=== PATIENT | female | born 1985 | race Asian ===

== ENCOUNTER 2018-02-27 12:03 | Inpatient (IN) | payer MEDICAID, OTHER ==
[~2018-02-27] VITALS: Ht 152.4 cm; Wt 45.8 kg
[2018-02-27] MEDS ORDERED: PNV11TAB PO (12:27)
[2018-02-27] MEDS ORDERED: LACTATED RINGER'S 1,000 ML IV SCH (15:00)
--- NOTE | 2018-02-27 16:37 | TRIAGE ---
OB Triage Datetime Report Generated by CPN: 02/27/2018 16:37 Datetime: 02/27/2018 16:32 Labor Evaluation Frequency: 2-4 Monitor Mode: External Duration (sec)2399: 50-80 Quality: Moderate Pattern: Normal: <= 5 Contractions in 10 Minutes Resting Tone [place]: Relaxed Heart Rate FHR Baseline Rate: 135 Monitor Mode: External US FHR Baseline Changes: No Baseline Change Variability: Moderate 6-25 bpm Accelerations: 15X15 Decelerations: None Category: Category I Pain Assessment Pain Presence: None/Denies Datetime: 02/27/2018 14:11 Labor Evaluation Frequency: 2-4 Monitor Mode: External Duration (sec)2399: 50-80 Quality: Moderate Pattern: Normal: <= 5 Contractions in 10 Minutes Resting Tone [place]: Relaxed Heart Rate FHR Baseline Rate: 140 Monitor Mode: External US FHR Baseline Changes: No Baseline Change Variability: Moderate 6-25 bpm Accelerations: 15X15 Decelerations: None Category: Category I Pain Assessment Pain Presence: None/Denies Datetime: 02/27/2018 13:42 Labor Evaluation Frequency: 2-4 Monitor Mode: External Duration (sec)2399: 50-70 Quality: Moderate Pattern: Normal: <= 5 Contractions in 10 Minutes Resting Tone [place]: Relaxed Heart Rate FHR Baseline Rate: 145 Monitor Mode: External US FHR Baseline Changes: No Baseline Change Variability: Moderate 6-25 bpm Accelerations: 15X15 Decelerations: None Category: Category I Pain Assessment Pain Presence: None/Denies Datetime: 02/27/2018 12:28 Labor Evaluation Frequency: 0 Monitor Mode: External Heart Rate FHR Baseline Rate: 130 Monitor Mode: External US FHR Baseline Changes: No Baseline Change Variability: Moderate 6-25 bpm Accelerations: 15X15 Decelerations: None Category: Category I Pain Assessment Pain Presence: None/Denies Datetime: 02/27/2018 12:20 Stage of : OB Triage Assessment Type: Triage Time of Arrival: 02/27/2018 12:20 EGA: 32.4 Arrived By: Ambulatory Arrived From: Office Chief Complaint: CALF PAIN Movement: Present Contractions: Denies/Absent Rupture of Membranes: Denies Vaginal Bleeding: None Vaginal Discharge: Denies Recent Sexual Intercouse: Denies Abdominal Trauma: Not Applicable Patient Complaints: None; Contractions; Other Time Provider Notified: 02/27/2018 14:20 Provider Notified: DELCEFERINO Initial Plan: BPP, VENOUS DOPPLER BILT, IV HYDRATION, CERVICAL LENGHT, UA, FFN Maternal Assessment Level of Consciousness: Fully Conscious DTR's/Clonus: DTRs 2+; No Clonus Headache: Denies Blurred Vision: No Respiratory Effort: Unlabored; Regular Rhythm; Equal Expansion Breath Sounds, Left: Clear and Equal Breath Sounds, Right: Clear and Equal Nausea/Vomiting: Denies RUQ Epigastric Pain: Denies Facial Edema: None Temperature Route: Axillary Fall Risk Assessment History of Falling: (0) No Secondary Diagnosis: (0) No Ambulatory Aid: (0) Bedrest/Nurse Assist IV Therapy: (0) No Gait: (0) Normal/Bedrest/Immobile Mental Status: (0) Oriented to Own Ability Fall Score: 0 Fall Risk Score Definition: No Risk: No action required
[2018-02-27] MEDS ORDERED: MAGNESIUM SULFATE 4 GM/100 ML 100 ML ONE (16:46)
[2018-02-27] MEDS ORDERED: MAGNESIUM SULFATE 20 GM/500 ML 500 ML IV ONE (16:46)
[2018-02-27] MEDS ORDERED: MAGNESIUM SULFATE 4 GM/100 ML 100 ML IV ONE (17:00)
[2018-02-27] MEDS ORDERED: FER325 PO (17:18)
[2018-02-27] MEDS ORDERED: FOLI-49 PO (17:18)
[2018-02-27] MEDS: LACTATED RINGER'S 1,000 ML IV SCH ×2 (17:48→23:44)
[2018-02-27] MEDS: MAGNESIUM SULFATE 20 GM/500 ML 500 ML IV SCH (17:51)
[2018-02-27] MEDS: BETAMET NA PHOS/AC(6 MG/ML) 2 ML INJ SYG IM SCH (18:56)
[2018-02-28] MEDS: LACTATED RINGER'S 1,000 ML IV SCH ×2 (07:22→16:30)
[2018-02-28] MEDS: MAGNESIUM SULFATE 20 GM/500 ML 500 ML IV SCH (10:44)
[2018-02-28] MEDS: PRENATAL VITAMIN PO SCH (12:54)
[2018-02-28] MEDS: FERROUS SULFATE (EC) 325 MG TAB PO SCH (13:10)
[2018-02-28] MEDS: FOLIC ACID 1 MG TAB PO SCH (13:10)
--- NOTE | 2018-02-28 15:48 | CONS ---
Date/Time of Note Date/Time of Note DATE: 02/28/18 TIME: 15:44 Assessment/Plan Assessment/Plan Result Diagram: 02/27/18 1811 02/27/18 1811 Results 24hrs Laboratory Tests Test 02/27/18 18:07 02/27/18 18:11 02/28/18 00:24 02/28/18 05:20 Magnesium Level 4.8 H 7.1 *H 4.7 #H White Blood Count 8.0 Red Blood Count 3.76 L Hemoglobin 11.9 L Hematocrit 34.6 L Mean Corpuscular Volume 92.0 Mean Corpuscular 31.6 Hemoglobin Mean Corpuscular 34.4 Hemoglobin Concent Red Cell Distribution 13.7 Width Platelet Count 164 Mean Platelet Volume 10.7 H Immature Granulocytes % 0.500 H Neutrophils % 72.2 Lymphocytes % 21.1 Monocytes % 5.5 Eosinophils % 0.4 Basophils % 0.3 Nucleated Red Blood 0.0 Cells % Immature Granulocytes # 0.040 H Neutrophils # 5.8 Lymphocytes # 1.7 Monocytes # 0.4 Eosinophils # 0.0 Basophils # 0.0 Nucleated Red Blood 0.0 Cells # Sodium Level 134 L Potassium Level 3.8 Chloride Level 107 Carbon Dioxide Level 21 Anion Gap 6 Blood Urea Nitrogen 7 Creatinine 0.51 Est Glomerular Filtrat > 60 Rate mL/min Glucose Level 88 Calcium Level 9.0 Total Bilirubin 0.2 Direct Bilirubin 0.00 Indirect Bilirubin 0.2 Aspartate Amino 26 Transf (AST/SGOT) Alanine 23 Aminotransferase (ALT/SG PT) Alkaline Phosphatase 210 H Total Protein 6.2 Albumin 3.1 L Globulin 3.10 Albumin/Globulin Ratio 1.00 Test 02/28/18 12:16 Magnesium Level 5.5 *H Hepatitis B Surface NEGATIVE Antigen Hepatitis C Antibody NEGATIVE HIV (1&2) Antibody NEGATIVE Consultation Date/Type/Reason Admit Date/Time Feb 27, 2018 at 16:30 Date of Consultation: Feb 28, 2018 Type of Consult Neonatology Reason for Consultation labor and twin gestation at 32-5/7-week. Requesting Provider: RALF RALPH MD Hx of Present Illness Asked to consult of this family because of in threatening twin delivery at 32-5/7-week. Mother was admitted on 02/27/2018 for leg cramps, and found to have labor and twin gestation. DVT was excluded. She is a 32-year-old 1 otherwise healthy. She received the first dose of betamethasone at 02/27/18 at 1900 hrs. and was also started on magnesium sulfate. Cervical length is 2.2 cm She denies illnesses medication smoking drugs alcohol. Discussed with Mrs. Cole and her the risks related to prematurity as well as twin related to long-term neurodevelopmental problems as well as the more acute problem such as intracranial hemorrhage, respiratory problems including the need for support with oxygen positive pressure on mechanical ventilation, possibly needed procedures such as umbilical central and arterial catheterization, risk for infection, apnea hyperbilirubinemia feeding difficulties including necrotizing enterocolitis, hearing and vision problems and many other issues. They had many concerns about the length of stay of the mother herself as well as the babies and I took more than usual time to explain this on the request. They had no further questions at the end of the interview. More than 50% of the 40 minutes of this consult was spent on counseling and coordination of care. Thank you for allowing me to assist in the care of this family. Past Medical History Medications Current Medications Lactated Ringer's 1,000 ml @ 100 mls/hr Q10H IV Last administered on 02/28/18 07:22; Admin Dose 100 MLS/HR; Start 02/27/18 at 16:38 Magnesium Sulfate 500 ml @ 25 mls/hr Q20H IV Last administered on 02/28/18at 10:44; Admin Dose 25 MLS/HR; Start 02/27/18 at 17:00 Betamethasone Acet/Betameth SodPhos ([place]el[place] Soluspan) 12 mg Q24H IM Last administered on 02/27/18at 18:56; Admin Dose 12 MG; Start 02/27/18 at 18:00; Stop 02/28/18 at 18:01 Prenat Multivit/ [place]/Iron/Folic Ac () 1 tab DAILY PO Last ad ministered on 02/28/18 12:54; Admin Dose 1 TAB; Start 02/28/18 at 09:00 Folic Acid (Folic Acid) 1 mg DAILY PO Last administered on 02/28/18 13:10; Admin Dose 1 MG; Start 02/28/18 at 13:00 Ferrous Sulfate (Ferrous Sulfate (Ec)) 325 mg DAILY PO Last administered on 02/28/18 13:10; Admin Dose 325 MG; Start 02/28/18 at 13:00 Allergies: Coded Allergies: No Known Allergy (Unverified , 02/27/18) Social History Smoking Status: Never smoker Exam/Review of Systems Vital Signs Vitals Intake and Output 02/27/18 02/27/18 02/28/18 1414:59 22:59 06:59 IntakeIntake Total 1112.5 ml 1132 ml OutputOutput Total 1300 ml 1150 ml BalanceBalance -187.5 ml -18 ml Medications Medications Current Medications Lactated Ringer's 1,000 ml @ 100 mls/hr Q10H IV Last administered on 02/28/18at 07:22; Admin Dose 100 MLS/HR; Start 02/27/18 at 16:38 Magnesium Sulfate 500 ml @ 25 mls/hr Q20H IV Last administered on 02/28/18at 10:44; Admin Dose 25 MLS/HR; Start 02/27/18 at 17:00 Betamethasone Acet/Betameth SodPhos ([place] Soluspan) 12 mg Q24H IM Last administered on 02/27/18at 18:56; Admin Dose 12 MG; Start 02/27/18 at 18:00; Stop 02/28/18 at 18:01 Prenat Multivit/ [place]/Iron/Folic Ac () 1 tab DAILY PO Last administered on 02/28/18at 12:54; Admin Dose 1 TAB; Start 02/28/18 at 09:00 Folic Acid (Folic Acid) 1 mg DAILY PO Last administered on 02/28/18at 13:10; Admin Dose 1 MG; Start 02/28/18 at 13:00 Ferrous Sulfate (Ferrous Sulfate (Ec)) 325 mg DAILY PO Last administered on 02/28/18at 13:10; Admin Dose 325 MG; Start 02/28/18 at 13:00 TOYA EVANS Feb 28, 2018 15:48
[2018-02-28] MEDS: BETAMET NA PHOS/AC(6 MG/ML) 2 ML INJ SYG IM SCH (18:14)
--- NOTE | 2018-03-01 01:58 | CONS ---
DATE OF ADMISSION: 02/27/2018 DATE OF CONSULTATION: 02/28/2018 TYPE OF CONSULTATION: Perinatology. HISTORY OF PRESENT ILLNESS: The patient is a 32-year-old primigravida with a twin intrauterine gesta tion, boys, was brought to the hospital since she was having pain in her calf to rule out DVT. It wa s ruled out; however, on the monitor, she was found to have contractions. She denies feeling the con tractions. Cervical length was done, it was 2.2 cm. Decision was made for tocolysis and betamethaso ne. Currently, she is on 1 g of magnesium per hour, and she has some flushing. Otherwise, no other compl aints. She does have contractions occasionally. She does not feel them. heart tones reassuring. fibronectin was negative. She was given betamethasone yesterday ; the second dose is tonight. Her history overall is negative. Blood pressure is normal. Physical exam was deferred. heart tones reassuring. Tocometer shows contractions as above. ASSESSMENT: Twin intrauterine at 32 weeks and 5 days with labor on magnesium sulfa te, status post betamethasone x1, receiving second dose of betamethasone tonight. She does not feel contractions. Her cervix is slightly shorter than normal for the gestational age. The fFN was negat alvin. RECOMMENDATIONS: Continue with the betamethasone until tomorrow morning, then we can discontinue. R epeat the transvaginal cervical length. If it is at the same overall stable and patient does not fee l contractions and the frequency of the contractions is not high, we can consider discharging the pat ient home with testing twice weekly and labor precautions. I recommended pelvic re st and modified bed rest. Dictated By: JALEESA COOPER MD ST/NTS Conf#: [id number] DID#: [id number] CC: RALF RALPH MD;*EndCC*
[2018-03-01] MEDS: LACTATED RINGER'S 1,000 ML IV SCH ×3 (02:13→19:22)
[2018-03-01] MEDS: PRENATAL VITAMIN PO SCH (09:33)
[2018-03-01] MEDS: FERROUS SULFATE (EC) 325 MG TAB PO SCH (09:33)
[2018-03-01] MEDS: FOLIC ACID 1 MG TAB PO SCH (09:33)
--- NOTE | 2018-03-01 14:46 | QN ---
Documentation Comment not symptomatic CVL 2.0cm EFM irregular uc's no symptomatic ? late deceleration on Twin A A IUP 32w6d twin gestation S/P [id number] short cervix P extended ob for Twin A tracing today CRISTI STRATTON MD Mar 01, 2018 14:46
[2018-03-02] MEDS: LACTATED RINGER'S 1,000 ML IV SCH ×3 (03:29→20:09)
[2018-03-02] MEDS: PRENATAL VITAMIN PO SCH (09:05)
[2018-03-02] MEDS: FOLIC ACID 1 MG TAB PO SCH (09:05)
[2018-03-02] MEDS: FERROUS SULFATE (EC) 325 MG TAB PO SCH (09:05)
--- NOTE | 2018-03-02 12:52 | PN ---
Date/Time of Note Date/Time of Note DATE: 03/02/18 TIME: 12:46 OB Subjective Subjective Subjective 32-year-old 1 para 0 with di-di-twins at 33 weeks of gestation with es timated date of delivery April 20, 2018 Patient has been admitted for labor and cervical shortening with cervix of 2 cm Patient status post magnesium sulfate and status post betamethasone for lung maturity Patient was complaining of lower extremity/calf pain on admission Bilateral Doppler of lower extremities was negative for DVT Patient's history significant for fibroids and kidney stones OB Objective Objective Objective Patient does not report feeling any uterine contractions She reports a small vaginal spotting, denies any leaking fluid She reports positive movement Patient is complaining of chest pressure and shortness of breath Pulse ox is 93% on room air Pulse 66 PROCEDURE: Ultrasound of the bilateral lower extremity venous system. CLINICAL INDICATION: Bilateral leg pain and swelling, deep venous thrombosis TECHNIQUE: Tang scale with and without compression, color doppler, spectral doppler of the venous system of the bilateral lower extremities was performed. Venous augmentation maneuvers were utilized. COMPARISON: No prior studies are available for comparison. FINDINGS: Right: Common femoral vein: Patent. Femoral vein: Patent. Popliteal vein: Patent. Calf veins: Patent. No soft tissue abnormalities are identified. Left: Common femoral vein: Patent. Femoral vein: Patent. Popliteal vein: Patent. Calf veins: Patent. No soft tissue abnormalities are identified. IMPRESSION: No evidence of a deep vein thrombosis within the bilateral lower extremities. RPTAT: AADD .Zachery Fermin MD, Date Time Electronically viewed and signed by .Zachery Fermin MD, on 02/27/2018 13:00 .B/ CC: RALF RALPH MD [id number] PROCEDURE: US Obstetrical, limited CLINICAL INDICATION: Cervical length TECHNIQUE: Multiple real-time images were acquired of the patient's maternal abdomen utilizing a curved array transducer. COMPARISON: 02/27/2018 FINDINGS: There are live twin intrauterine gestations. Twin A, the presenting fetus is breech with a heart rate of 125 bpm, and the placenta implanted posteriorly, grade 1, while twin B is transverse with the head to the maternal right with a heart rate of 122 bpm with the placenta implanted anteriorly and is grade 1. There is no evidence of placenta previa or abruptio. The cervix is closed and measures 2.0 cm in length. IMPRESSION: 1. Live twin intrauterine gestations. 2. Twin A is breech, the heart rate is 125 bpm, and the placenta is grade 1 and implanted posteriorly without evidence of previa or abruptio. 3. Twin B is transverse with the head to the maternal right, the heart rate is 122 bpm, and the placenta is grade 1 an implanted anteriorly without evidence of previa or abruptio. 4. The cervix is closed and measures 2.0 cm in length, slightly shorter than measured previously. Physician Lisandro Date Time Electronically viewed and signed by Physician Lisandro on 03/01/2018 09:09 RH/ CC: RALF RALPH MD [phone] Urine Results - 72 Hrs Test 02/27/18 14:40 Urine Color YELLOW (YELLOW) Urine Clarity SLIGHTLY CLOUDY (CLEAR) Urine pH 6.0 (5.0-9.0) Urine Specific [place] 1.010 (1.003-1.030) Urine Ketones NEGATIVE mg/dL (NEGATIVE) Urine Nitrite NEGATIVE mg/dL (NEGATIVE) Urine Bilirubin NEGATIVE mg/dL (NEGATIVE) Urine Urobilinogen NEGATIVE mg/dL (NEGATIVE) Urine Leukocyte Esterase NEGATIVE Nora/ul Urine Microscopic RBC 2 /HPF (0-5) Urine Microscopic WBC 5 /HPF (0-5) Urine Squamous Epithelial Cells FEW /HPF (FEW) Urine Hemoglobin NEGATIVE mg/dL (NEGATIVE) Urine Glucose NEGATIVE mg/dL (NEGATIVE) Urine Total Protein NEGATIVE mg/dl (NEGATIVE) PROCEDURE: XR Chest. CLINICAL INDICATION: Chest pain TECHNIQUE: PA and Lateral views of the chest were obtained. COMPARISON: None. FINDINGS: The cardiomediastinal silhouette is within normal limits. The lungs are clear. There is a 2 mm nodular density seen in the central medial right upper lung field. This most likely represents a large osteophyte from the first costochondral junction, however, lung nodule cannot be ruled out. There is a small left pleural effusion. No pneumothorax seen. The osseous structures and soft tissues are unremarkable. IMPRESSION: Small left pleural effusion. Question right upper lobe lung nodule versus large first costal chondral junction osteophyte. Consider apical lordotic chest x-ray or CT for more definitive diagnosis. .Otf Hinojosa MD, MD Date Time Electronically viewed and signed by .Otf Hinojosa MD, MD on 03/02/2018 14:19 .A/ CC: DYLAN DE LA GARZA MD [id number] EKG normal sinus rhythm HEENT: WNL Heart: Rhythm Normal Lungs: Clear, Equal Abdomen: WNL Extremities: Normal Reflexes: Normal Membranes: Intact Heart Rate: 140's Accelerations: Accelerations Present Decelerations: No Decelerations Varibility: Moderate Contractions on Admission: 6-10 Minutes Apart Intensity: Mild OB Assessment/Plan Reason for admission: labor (Cervical shortening) Other plan: Continuous heart rate monitoring and biophysical profile twice weekly Twelve-lead EKG and chest x-ray done today If patient continues with chest pressure and shortness of breath we will consider a spiral CT to rule out PE DYLAN DE LA GARZA MD Mar 02, 2018 12:52
[2018-03-03] MEDS: LACTATED RINGER'S 1,000 ML IV SCH (05:45)
[2018-03-03] MEDS: FOLIC ACID 1 MG TAB PO SCH (08:13)
[2018-03-03] MEDS: PRENATAL VITAMIN PO SCH (08:13)
[2018-03-03] MEDS: FERROUS SULFATE (EC) 325 MG TAB PO SCH (08:13)
--- NOTE | 2018-03-03 11:10 | QN ---
Documentation Comment Twin @33+wks with PTL NST reassuring [place] occasional CTXs Pelvic deferred --->continue the same management AYDEE GOODWIN M.D. Mar 03, 2018 11:10
--- NOTE | 2018-03-03 21:23 | RADRPT ---
Vent Rate: 64 bpm RR Interval: 0 msec [place] Interval: 116 msec QRS Duration: 84 msec QT Interval: 368 msec QTC Interval: 379 msec P-R-T [place]: 59 - 66 - 42 degrees Normal sinus rhythm Normal ECG Electronically Signed By: Ariel Brooks [id number]
[2018-03-04] MEDS: PRENATAL VITAMIN PO SCH (08:52)
[2018-03-04] MEDS: FOLIC ACID 1 MG TAB PO SCH (08:52)
[2018-03-04] MEDS: FERROUS SULFATE (EC) 325 MG TAB PO SCH (08:52)
--- NOTE | 2018-03-04 09:25 | QN ---
Documentation Comment Twin @33+wks with PTL NST reassuring [place] occasional CTXs Pelvic deferred --->continue the same management AYDEE GOODWIN M.D. Mar 04, 2018 09:25
[2018-03-05] MEDS: PRENATAL VITAMIN PO SCH (08:40)
[2018-03-05] MEDS: FERROUS SULFATE (EC) 325 MG TAB PO SCH (08:41)
[2018-03-05] MEDS: FOLIC ACID 1 MG TAB PO SCH (08:41)
--- NOTE | 2018-03-05 18:43 | QN ---
Documentation Comment have eric with gilbert tomorrow for f/u no feeling of uc's even though efm shows some uterine activities 3-4 /hr A IUP 33w3d twin gestation short cervix P EFW and CVL in am CRISTI STRATTON MD Mar 05, 2018 18:43
[2018-03-06] MEDS: PRENATAL VITAMIN PO SCH (09:02)
[2018-03-06] MEDS: FOLIC ACID 1 MG TAB PO SCH (09:02)
[2018-03-06] MEDS: FERROUS SULFATE (EC) 325 MG TAB PO SCH (09:02)
--- NOTE | 2018-03-06 17:11 | QN ---
Documentation Comment no c/o cramping pain EFM occ uc not felt by patient CVL 2.3 stable TwinA 1678gm Twin B 1406gm A IUP 33w4d twin gestation short cervix stable S/P BMZ and Mg P continue current management till 34weeks CRISTI STRATTON MD Mar 06, 2018 17:11
[2018-03-07] MEDS: FOLIC ACID 1 MG TAB PO SCH (08:50)
[2018-03-07] MEDS: PRENATAL VITAMIN PO SCH (08:50)
[2018-03-07] MEDS: FERROUS SULFATE (EC) 325 MG TAB PO SCH (08:50)
--- NOTE | 2018-03-07 12:34 | PN ---
Date/Time of Note Date/Time of Note DATE: 03/07/18 TIME: 12:30 OB Subjective Subjective Subjective Denies any complaint. Comfortable in the bed. Denies any leaking of fluid, vaginal bleeding decreased movement or uterine contractions. Denies any pain in lower extremity OB Objective Objective Objective Appearance: Alert and oriented x4 does not appear to be in any acute distress Abdomen soft, gravid, fundal height appears to be less than dates for twin No tenderness, NST: Category 1 for both twins Contractions q. 49 minutes noted on the monitor and patient does not feeling Extremities: No calf tenderness, no click no edema no cord palpable Per ultrasound twin gestation malpresentation with transverse/vertex, Di/Di Both twins less than 3 percentile consistent with IUGR Maternal low BMI noted OB Assessment/Plan Other Assessment: Hospital day #9 Admitted for short cervix and twin gestation Status post magnesium and completed steroids IUGR in both twins Plan is to stay in the hospital until delivery Had episodes of chest pain and leg pain ruled out for DVT. Symptoms resolved Latest cervical length: 2.3 cm testing reassuring Continue inpatient management Continuous monitoring DVT prophylaxis with SCDs Maternal underweight and low BMI noted. IUGR likely secondary to maternal body habitus And possible poor nutritional status Recommended nutrition consultation while in-house Expectant management GEORGINA VALERIO MD Mar 07, 2018 12:34
--- NOTE | 2018-03-07 17:08 | NUR ---
NUTRITION CONSULT: PATIENT WITH HIGH CALORIE/PROTEIN NEEDS R/T TWIN GESTATION 32 5/7 WEEKS. PATIENT LACTO OVO VEGETARIAN. STATED HER MD ADVISED HER TO LIMIT HER MILK INTAKE R/T KIDNEY STONE (OXALIC). REVIEWED WITH PATIENT NUTRIENT DENSE FOOD WITH SHE CAN HAVE TO INCREASE CALORIE/PROTEIN INTAKE. PATIENT AWARE OF INCREASED NEEDS. FOOD PREFERENCE WERE OBTAINED AND WILL BE CATERED. ENCOURAGED TO HAVE SNACKS IN BETWEEN MEALS. WILL FOLLOW UP.
--- NOTE | 2018-03-08 02:07 | QN ---
Documentation Comment late entry for 03/07/18 no c/o of cramping pain EFM no uc's A IUP 33w5d twin gestations short cervix S/P BMZ and Mg P discharge home at 34weeks CRISTI STRATTON MD Mar 08, 2018 02:07
[2018-03-08] MEDS: PRENATAL VITAMIN PO SCH (08:44)
[2018-03-08] MEDS: FERROUS SULFATE (EC) 325 MG TAB PO SCH (08:45)
[2018-03-08] MEDS: FOLIC ACID 1 MG TAB PO SCH (08:45)
[2018-03-08] MEDS ORDERED: AL HYDROX/MG HYDROX/SIMETH 30 ML CUP PO ONE (11:00)
--- NOTE | 2018-03-08 17:49 | QN ---
Documentation Comment had epigastric pain gone with antiacid EFM 2-3uterine activities in hr not felt by patient (sera ) CAT I tracing A IUP 33w6d twin gestation short cervix herbert sosa discharge home tomorrow CRISTI STRATTON MD Mar 08, 2018 17:49
[2018-03-09] MEDS: PRENATAL VITAMIN PO SCH (09:37)
[2018-03-09] MEDS: FERROUS SULFATE (EC) 325 MG TAB PO SCH (09:37)
[2018-03-09] MEDS: FOLIC ACID 1 MG TAB PO SCH (09:37)
--- NOTE | 2018-03-09 16:12 | PN ---
Date/Time of Note Date/Time of Note DATE: 03/09/18 TIME: 16:07 OB Subjective Subjective Subjective Patient comfortable. Denies any leaking of fluid, vaginal bleeding decreased movement denies any urinary symptoms. Reported by nurse presents of lung nodules noted in chest x-ray versus hypertrophic, cartilage with some small pleural effusion. Patient denies any fever or chills. Denies any night sweats. Denies any prior history of cough. Denies any history of respiratory problem in the past. OB Objective Objective Objective General appearance: Alert and oriented x4 does not appear to be in any acute distress Abdomen: Soft, gravid fundal height appears to correlate with gestational age, NST: Category 1 and appropriate for gestational age Occasional contractions noted in the bouts of 4 every minute and resolves. Patient does not feel them. Extremities: No calf tenderness, no click no edema Discussed with the patient will have SCDs on when she is in bed OB Assessment/Plan Other Assessment: Admitted for leg pain, negative DVT and clinical exam and ultrasound Noted to have regular contractions, Admitted due to contractions. Twin gestation, Di/Di Status post steroids, completed Cervical length 2.3 cm Low BMI, IUGR noted in growth examination likely related to maternal low BMI Status post podiatry consultation Incidental finding of lung nodule with small pleural effusion. Patient denies any symptoms Recommended about hospice consultation while in-house for incidental finding of lung nodule Expectant management, continuous monitoring and toco with NST every shift GEORGINA VALERIO MD Mar 09, 2018 16:12
[2018-03-10] MEDS: FERROUS SULFATE (EC) 325 MG TAB PO SCH (08:28)
[2018-03-10] MEDS: FOLIC ACID 1 MG TAB PO SCH (08:28)
[2018-03-10] MEDS: PRENATAL VITAMIN PO SCH (08:28)
--- NOTE | 2018-03-10 11:35 | CONS ---
Date/Time of Note Date/Time of Note DATE: 03/10/18 TIME: 11:31 Assessment/Plan Assessment/Plan Assessment/Plan Chest x-ray was reviewed which is showing slight interstitial prominence with very minimal if any left pleural effusion. It appears to be a calcified mass in the right upper lobe area. Assessment recommendations; 1. Patient admitted with abdominal cramping likely due to labor which has been reported. Patient clinically stable. 2. Chest x-ray findings are consistent with likely prior granulomatous disease. The patient from a clinical perspective is totally is not traumatic. Continue current supportive care. Patient will need to have a CT imaging of the chest after delivery. There is no other workup warranted at this time. Consultation Date/Type/Reason Admit Date/Time Feb 27, 2018 at 16:30 Date of Consultation: Mar 10, 2018 Type of Consult Pulmonary Pulmonary consult requested for evaluation of possible lung nodule as well as left pleural effusion. History of presenting illness; patient is a 32-year-old lady who came into the hospital with complaints of abdominal cramps. The patient has twin . Delivery has been deferred. Patient has remained stable clinically. Routine chest x-ray was done which has been interpreted as showing a possible right upper lobe nodule as well as a small left pleural effusion. From a pulmonary pe rspective patient is completely asymptomatic other than occasional orthopnea. Denies any coughing, wheezing, sputum production, fever or chills. Past medical history; unremarkable. Medications; reviewed. Allergies; none. Family history; patient is , has a supportive family. Occupational history; patient is a housewife. Review of systems; denies any headache, sinus symptoms. Any chest pain. Complains of occasional orthopnea. Denies any coughing, sputum production, fever, weight loss. Denies any nausea vomiting. Complains of occasional abdominal discomfort. Denies any edema. There is no recent travel history. Patient has been residing in the [place] for the last 10 years. General exam; young female, awake alert, currently no distress. Past Medical History Medications Current Medications Prenat Multivit/ Manager Of Tires Sales/Iron/Folic Ac () 1 tab DAILY PO Last administered on 03/10/18at 08:28; Admin Dose 1 TAB; Start 02/28/18 at 09:00 Folic Acid (Folic Acid) 1 mg DAILY PO Last administered on 03/10/18at 08:28; Admin Dose 1 MG; Start 1/3/19 at 13:00 Ferrous Sulfate (Ferrous Sulfate (Ec)) 325 mg DAILY PO Last administered on 03/10/18 08:28; Admin Dose 325 MG; Start 02/28/18 at 13:00 Allergies: Coded Allergies: No Known Allergy (Unverified , 02/27/18) Social History Smoking Status: Never smoker Exam/Review of Systems Exam H HEENT exam; supple neck, no JVD. No lymphadenopathy. Midline trachea. No thyromegaly. Patient has good dentition. No neck masses. Chest exam; clear to auscultation. S1-S2 audible, no murmurs. Regular rhythm. Abdomen exam; gravid. Bowel sounds audible Extremity exam; no peripheral edema. TOWER LOADER OPERATOR exam; no focal deficit. Medications Medications Current Medications Prenat Multivit/ Manager Of Tires Sales/Iron/Folic Ac () 1 tab DAILY PO Last administered on 03/10/18 08:28; Admin Dose 1 TAB; Start 02/28/18 at 09:00 Folic Acid (Folic Acid) 1 mg DAILY PO Last administered on 03/10/18 08:28; Admin Dose 1 MG; Start 02/28/18 at 13:00 Ferrous Sulfate (Ferrous Sulfate (Ec)) 325 mg DAILY PO Last administered on 03/10/18 08:28; Admin Dose 325 MG; Start 02/28/18 at 13:00 LLUVIA FARRAR Mar 10, 2018 11:35
--- NOTE | 2018-03-10 17:29 | QN ---
Documentation Comment Twin @34+wks with PTL NST reassuring [place] occasional CTXs Pelvic deferred --->continue the same management AYDEE GOODWIN M.D. Mar 10, 2018 17:29
[2018-03-11] MEDS: FERROUS SULFATE (EC) 325 MG TAB PO SCH (08:31)
[2018-03-11] MEDS: PRENATAL VITAMIN PO SCH (08:31)
[2018-03-11] MEDS: FOLIC ACID 1 MG TAB PO SCH (08:31)
--- NOTE | 2018-03-11 13:05 | QN ---
Documentation Comment Twin @34+wks with PTL NST reassuring [place] occasional CTXs Pelvic deferred --->continue the same management AYDEE GOODWIN M.D. Mar 11, 2018 13:05
[2018-03-12] MEDS: FERROUS SULFATE (EC) 325 MG TAB PO SCH (08:42)
[2018-03-12] MEDS: FOLIC ACID 1 MG TAB PO SCH (08:42)
[2018-03-12] MEDS: PRENATAL VITAMIN PO SCH (08:42)
--- NOTE | 2018-03-12 12:16 | QN ---
Documentation Comment No complaint Afebrile VSS Strip Reactive Continue present care Perinatology follow up. RALF RALPH MD Mar 12, 2018 12:15
--- NOTE | 2018-03-12 13:46 | PN ---
Date/Time of Note Date/Time of Note DATE: 03/12/18 TIME: 13:41 OB Subjective Subjective Subjective Patient with twin IUP, labor (resolved) found today to have symmetric growth restriction. I would follow this with twice weekly testing (NST or BPP) and umbilical artery Doppler weekly. I would repeat the growth evaluation in two weeks. If there is non-reassuring testing for either fetus I would deliver. Otherwise, I would deliver at 36 weeks for twin IUGR. (per ACOG Committee opinion on medically-indicated late p reterm and early term deliveries. Copies To: CC: RALF RALPH MD ; KATHI DEY MD Mar 12, 2018 13:46
[2018-03-13] MEDS: FERROUS SULFATE (EC) 325 MG TAB PO SCH (09:02)
[2018-03-13] MEDS: FOLIC ACID 1 MG TAB PO SCH (09:02)
[2018-03-13] MEDS: PRENATAL VITAMIN PO SCH (09:02)
--- NOTE | 2018-03-13 16:18 | PN ---
Date/Time of Note Date/Time of Note DATE: 03/13/18 TIME: 16:16 OB Subjective Subjective Subjective Patient seen and examined. She states good movement. She denies nausea, vomiting, shortness of breath, chest pain, abdominal pain, headache, visual changes, vaginal bleeding or LOF. OB Objective Objective Objective General: Patient appears well, alert and oriented, NAD, appropriate mood and affect ABD: gravid, soft, non-tender. Back: No CVA tenderness (B/L) LE: Mild edema. No clubbing, cyanosis, edema, thigh or calf tenderness bilaterally FHT: 135 bpm , moderate variability with acceleration, no deceleration-category I Contractions: Irregular, patient does not feel dos OB Assessment/Plan Other plan: 32 Year-old G1 with SIUP at 34 weeks and 4-days with fractions - FHR: Reassuring. No sign of metabolic acidosis- Category I - Contractions: Irregular, patient is comfortable with those - Continuous EFM, toco. - She has received magnesium sulfate and betamethasone, currently steroid benefited - Continue current management and follow-up with her primary OB LISA CHRISTIANSON Mar 13, 2018 16:18
[2018-03-14] MEDS: PRENATAL VITAMIN PO SCH (09:03)
[2018-03-14] MEDS: FERROUS SULFATE (EC) 325 MG TAB PO SCH (09:03)
[2018-03-14] MEDS: FOLIC ACID 1 MG TAB PO SCH (09:03)
--- NOTE | 2018-03-14 19:33 | QN ---
Documentation Comment No complaint Afebrile VSS Strip Reactive both twins Continue with +in hospital care. RALF RALPH MD Mar 14, 2018 19:33
[2018-03-15] MEDS: PRENATAL VITAMIN PO SCH (09:32)
[2018-03-15] MEDS: FOLIC ACID 1 MG TAB PO SCH (09:33)
[2018-03-15] MEDS: FERROUS SULFATE (EC) 325 MG TAB PO SCH (09:33)
--- NOTE | 2018-03-15 12:25 | NUR ---
SW NOTE: ASSESSMENT Met with both the pt and the FoB/ - Khari Quintana, : 12/21/1979 , at bedside for supportive intervention. Both were receptive. Communicated in Iranian. Pt and FoB have been x7 years. They are originally from [place] and [place] the [place]. They both reside at the address son the face sheet. Pt is G-1 and P-0. She is carrying twins. MoB stated she started PNC with Dr. Christie at [facility] but when her insurance changed, she switched to Dr. Dean. Both are coping well. They have a good understanding of the PoC. Denied any P/S issues. SW provided supportive intervention. Encouraged the pt/FoB to verbalize their feelings/concerns. Will remain available. Addendum: 03/15/18 at 1603 by RUFUS LIN LCSW Amended: Links added.
--- NOTE | 2018-03-15 19:23 | QN ---
Documentation Comment No complaint Afebrile VSS Strip Reactive both twins BPP 10/03 Continue with in hospital care. RALF RALPH MD Mar 15, 2018 19:23
[2018-03-16] MEDS: PRENATAL VITAMIN PO SCH (08:45)
[2018-03-16] MEDS: FERROUS SULFATE (EC) 325 MG TAB PO SCH (08:46)
[2018-03-16] MEDS: FOLIC ACID 1 MG TAB PO SCH (08:46)
--- NOTE | 2018-03-16 11:56 | QN ---
Documentation Comment No complaint Afebrile VSS Strip Reactive both twins Continue with in hospital care. RALF RALPH MD Mar 16, 2018 11:56
[2018-03-17] MEDS: PRENATAL VITAMIN PO SCH (08:27)
[2018-03-17] MEDS: FOLIC ACID 1 MG TAB PO SCH (08:27)
[2018-03-17] MEDS: FERROUS SULFATE (EC) 325 MG TAB PO SCH (08:27)
--- NOTE | 2018-03-17 13:46 | QN ---
Documentation Comment No complaint Afebrile VSS Strip Reactive both twins Continue with in hospital care. RALF RALPH MD Mar 17, 2018 13:46
[2018-03-18] VITALS (7 sets, daily range): BP systolic 109–130; BP diastolic 72–78; PULSE 70–82; RESP 16–20
[2018-03-18] MEDS: LACTATED RINGER'S 1,000 ML IV SCH ×3 (03:40→17:19)
[2018-03-18] MEDS ORDERED: METHYLERGONOVINE 0.2 MG INJ IM PRN ×2 (04:00→10:00)
[2018-03-18] MEDS ORDERED: OXYTOCIN 30 UNITS/LR 500 ML IV SCH ×2 (04:00)
[2018-03-18] MEDS ORDERED: LIDOCAINE 1% (MPF) 30 ML INJ INJ PRN (04:00)
[2018-03-18] MEDS ORDERED: MISOPROSTOL 200 MCG TAB PR PRN ×2 (04:00→10:00)
[2018-03-18] MEDS ORDERED: OXYTOCIN 30 UNITS/LR 500 ML IV PRN ×2 (04:00→10:00)
[2018-03-18] MEDS ORDERED: CARBOPROST 250 MCG INJ IM PRN ×2 (04:00→10:00)
[2018-03-18] MEDS: ONDANSETRON 4 MG INJ IV PRN ×2 (04:11→10:38)
[2018-03-18] MEDS ORDERED: CEFAZOLIN 2 GM/50 ML (PMX) 50 ML IVPB ONE (04:30)
[2018-03-18] MEDS ORDERED: morphine SULFATE/PF (10 MG/10 ML) INJ ONE (05:19)
[2018-03-18] MEDS ORDERED: BUPIVACAINE 0.75%/DEXT (SPINAL) 2 ML INJ ONE (05:19)
[2018-03-18] MEDS ORDERED: EPHEDrine 25 MG/5 ML SYG ONE (05:29)
[2018-03-18] MEDS ORDERED: ONDANSETRON 4 MG INJ ONE (05:29)
[2018-03-18] MEDS ORDERED: METOCLOPRAMIDE 10 MG INJ ONE (05:29)
--- NOTE | 2018-03-18 05:39 | PREAC ---
Date/Time of Note Date/Time of Note DATE: 03/18/18 TIME: 05:36 Anesthesia Eval and Record Evaluation Time Pre-Procedure Interview DATE: 03/18/18 TIME: 04:37 Age 32 Sex female NPO: 8 hrs Preoperative diagnosis iup @ 35 wks., twins, breech presentation, labor Planned procedure primary c/s Past Medical History Past Medical History: Includes : : (1), Para: (0), Gestational age: (35 wks.), Twin , Other (breech presentation, vaginal dilatation) Surgery & Anesthesia Issues No known issue Meds Anticoagulation: No Beta Dandre within 24 hr: No Reason Beta Dandre not given: Pt. not on B-Dandre Reported Medications Ferrous Sulfate* (Ferrous Sulfate*) 325 Mg Tabec, 325 MG PO DAILY, TAB 02/27/18 Folic Acid* (Folic Acid*) 1 Mg Tablet, 1 MG PO DAILY, TAB 02/27/18 [id number] ( 19) 1 Each Tablet, 1 TAB PO DAILY, TAB 02/27/18 Current Medications Prenat Multivit/ Registered Health Nurse/Iron/Folic Ac () 1 tab DAILY PO Last administered on 03/17/18at 08:27; Admin Dose 1 TAB; Start 02/28/18 at 09:00 Folic Acid (Folic Acid) 1 mg DAILY PO Last administered on 03/17/18at 08:27; Admin Dose 1 MG; Start 02/28/18 at 13:00 Ferrous Sulfate (Ferrous Sulfate (Ec)) 325 mg DAILY PO Last administered on 03/17/18at 08:27; Admin Dose 325 MG; Start 02/28/18 at 13:00 Lactated Ringer's 1,000 ml @ 125 mls/hr Q8H IV Last administered on 03/18/18at 03:40; Admin Dose 125 MLS/HR; Start 03/18/18 at 03:30 Ondansetron HCl (Zofran Inj) 4 mg Q4H PRN IV NAUSEA AND/OR VOMITING Last administered on 03/18/18at 04:11; Admin Dose 4 MG; Start 03/18/18 at 03:30 Lidocaine (Xylocaine 1% (Mpf)) 30 ml ONCE PRN INJ EPISIOTOMY; Start 03/18/18 at 04:00 Oxytocin/Lactated Ringer's 500 ml @ 500 mls/hr ONCE POST IV ; Start 03/18/18 at 04:00 Oxytocin/Lactated Ringer's 500 ml @ 125 mls/hr POST IV ; Start 03/18/18 at 04:00 Oxytocin/Lactated Ringer's 500 ml @ 0 mls/hr ONCE PRN IV VAGINAL BLEEDING; Start 03/18/18 at 04:00 Methylergonovine Maleate (Methergine) 0.2 mg ONCE PRN IM VAGINAL BLEEDING; Start 03/18/18 at 04:00 Carboprost Tromethamine (Hemabate) 250 mcg ONCE PRN IM VAGINAL BLEEDING; Start 03/18/18 at 04:00 Misoprostol (Cytotec) 1,000 mcg ONCE PRN OR VAGINAL BLEEDING; Start 03/18/18 at 04:00 Meds reviewed: Yes Allergies Coded Allergies: No Known Allergy (Unverified , 02/27/18) Allergies Reviewed: Yes Labs/Studies Labs Reviewed: Reviewed by anesthesiologist Result Diagram: 03/18/18 0340 Laboratory Tests 03/18/18 03:40 Blood Bank Test 03/18/18 03:40 Blood Type O POSITIVE test: Positive Studies: ECG (n/a), CXR (n/a) Pre-procedure Exam Airway: Adequate mouth opening, Adequate thyromental dist Mallampati: Mallampati II Teeth: Normal Lung: Normal Heart: Normal ASA Physical Status ASA physical status: 2 Emergency: E Planned Anesthetic General/MAC: TIVA (post baby) Neuraxial: Spinal Planned Pain Management Sub-arachniod narcotics Pre-operative Attestations Prior to commencing anesthesia and surgery, the patient was re-evaluated, there was verification of: *The patient's identity *The results of appropriate recent lab work and preoperative vital signs *The above evaluation not changing prior to induction *Anesthetic plan, risk benefits, alternative and complications discussed with patient/family; questions answered; patient/family understands, accepts and wishes to proceed. Drying Machine Receiver used MERLY BISHOP MD Mar 18, 2018 05:39
--- NOTE | 2018-03-18 05:40 | PAC ---
Date/Time of Note Date/Time of Note DATE: 03/18/18 TIME: 14:00 Post-Anesthesia Notes Post-Anesthesia Note Activity: WNL Respiratory function: WNL Cardiovascular function: WNL Mental status: Baseline Pain reasonably controlled: Yes Hydration appropriate: Yes Nausea/Vomiting absent: Yes MERLY BISHOP MD Mar 18, 2018 05:40
[2018-03-18] MEDS ORDERED: LACTATED RINGER'S 1,000 ML IV ONE (05:41)
[2018-03-18] MEDS ORDERED: MIDAZOLAM 1 MG/ML 2 ML INJ ONE (05:50)
[2018-03-18] MEDS ORDERED: OXYTOCIN 10 UNIT INJ ONE ×2 (05:50→06:10)
--- NOTE | 2018-03-18 05:55 | OPPN ---
Date/Time of Note Date/Time of Note DATE: 03/19/18 TIME: 00:30 Anesthesia Follow up Anesthesia Follow up Respiratory function: WNL Cardiovascular function: WNL Comments it mso4 pod #1 f/u. S: pt. pod #1. min. bt pain. min. n/v. min need for bt pain meds ie. nsaids/opiates. ambulating. O: vss, afeb. A: min. bt pain. sec. to it mso4. P: no complications. MERLY BISHOP MD Mar 18, 2018 05:55
[2018-03-18] MEDS ORDERED: ONDANSETRON 4 MG INJ IV PRN ×2 (06:00→10:00)
[2018-03-18] MEDS ORDERED: EPHEDrine SULFATE 50 MG/5 ML SYG IV PRN (06:00)
[2018-03-18] MEDS ORDERED: MEPERIDINE 25 MG INJ IV PRN (06:00)
[2018-03-18] MEDS ORDERED: DIPHENHYDRAMINE 50 MG INJ IV PRN ×3 (06:00→10:00)
[2018-03-18] MEDS ORDERED: NALBUPHINE HCL (10 MG/1 ML) INJ IV PRN (06:00)
[2018-03-18] MEDS ORDERED: MIDAZOLAM 1 MG/ML 2 ML INJ IV PRN (06:00)
[2018-03-18] MEDS ORDERED: NALOXONE (0.4 MG/ML) INJ IV PRN (06:00)
[2018-03-18] MEDS ORDERED: ZOLPIDEM 5 MG TAB PO PRN ×2 (06:00→10:00)
[2018-03-18] MEDS ORDERED: HYDROmorphONE 0.5 MG/0.5 ML SYG IV PRN (06:00)
--- NOTE | 2018-03-18 07:23 | OPPN ---
Date/Time of Note Date/Time of Note DATE: 03/18/18 TIME: 07:07 Operative Report Planned Procedure Free Text/Dictation 32y.o primigravida who has been hospitalized for short cervix since 02/27/18 with twin gestation had bmz and magnesium sulfate,been on bed rest ,went in labor since early this morning u/s both breech and breech VE 3cm/100/-2 prepare for primary c/s. Procedure date Mar 18, 2018 Procedure(s) primary low transverse c/s Performed by see signature line Square Dance Caller: SHAISTA BLANCHARD MD 2nd Square Dance Caller none Anesthesiologist: MERLY BISHOP MD Pre-procedure diagnosis IUP 35w2d Twin gestation PTL breech /beech presentation [id number] Anesthesia Type: Dxcii2y spinal Post-Procedure Post-procedure diagnosis same as above delivered normal female and male Findings Live Baby [f m ], Apgars [8,9 ] and8,9 [], weight [1785gm, 1550gm], position [single footling,LSA], [incomplete breech/ teodoro] presentation [none]cord. Estimated Blood Loss: 400 - 500 mls Specimen(s) placenta Grafts/Implant(s) none Complication(s) none CRISTI STRATTON MD Mar 18, 2018 07:23
[2018-03-18] MEDS ORDERED: LACTATED RINGER'S 1,000 ML IV SCH (09:37)
[2018-03-18] MEDS ORDERED: OXYCODONE/ACETAMINOPHEN (5/325) TAB PO PRN (10:00)
[2018-03-18] MEDS: FERROUS SULFATE (EC) 325 MG TAB PO SCH (10:50)
[2018-03-18] MEDS: PRENATAL VITAMIN PO SCH (10:50)
[2018-03-18] MEDS: FOLIC ACID 1 MG TAB PO SCH (10:50)
--- NOTE | 2018-03-18 11:06 | NUR ---
rcvd. pt. care from sherry burroughs. pt. deliver twins via primary c.section. pt. haad N&V and medicated. rn teaching and assiting w/ breast pumping. pt. successfully expressed 30ml of breast milk. pt. states pain 0/10. pt. can bend at knees bilaterally. f/c draining clear yellow fluids. dressing D&I.
[2018-03-18] MEDS: IBUPROFEN 600 MG TAB PO SCH ×2 (11:08→18:00)
[2018-03-18] MEDS: HYDROmorphONE 0.5 MG/0.5 ML SYG IV PRN ×2 (12:33→17:25)
--- NOTE | 2018-03-18 12:37 | NUR ---
pt. medicated for pain after fundal check, uterus firm and small amount lochia noted. f/c cont. to drain clear yellow. family at bedside. rn cont. to assist pt. w/ pumping. pt. is motivated and cooperative.
--- NOTE | 2018-03-18 16:20 | NUR ---
SW NOTE: NICU ASSESSMENT Twins were born at GA of 35 weeks. This underwriter mortgage loan was familiar with the parents from an Antepartum assessment last week. Met with both the pt and the FoB/ - Khari Do MarianoB: 12/21/1979 , at bedside for the NICU assessment supportive intervention. Paternal grandmother was also at bedside. All were receptive. Communicated in Yakut. Pt and FoB have been x7 years. They are originally from [place] and [place] the [place]. They both reside at the address son the face sheet. Pt is G-1 and P-2. Pt started PNC with Dr. Christie at [facility] but when her insurance changed, she switched to Dr. Dean. Both are coping well. They have a good understanding of the reason for NICU admission. Parents denied any new P/S issues. SW provided supportive intervention. Encouraged the pt/FoB to verbalize their feelings/concerns related to the twins' NICU admission. Discussed Medi-Ej and CCS for the twins. Father will obtain a 2nd CCS application from the NICU and complete promptly. This underwriter mortgage loan also educated the parents re: FMLA and gave the FoB the claim form and encouraged him to discuss his benefits with his employer. Parents verbalized a good understanding. SW will remain available.
[2018-03-18] MEDS: SENNA/DOCUSATE NA (8.6MG/50MG) TAB PO SCH (21:11)
[2018-03-18] MEDS: KETOROLAC 30 MG INJ IV PRN (22:10)
[2018-03-19] VITALS: BP 121/77; PULSE 75; RESP 18
[2018-03-19] MEDS: LACTATED RINGER'S 1,000 ML IV SCH ×2 (00:45→11:30)
[2018-03-19 04:00] VITALS: BP 127/75; PULSE 63; RESP 17
[2018-03-19] MEDS: KETOROLAC 30 MG INJ IV PRN (04:15)
[2018-03-19] MEDS: LANOLIN HPA 1 PKT TOP PRN (06:29)
--- NOTE | 2018-03-19 06:44 | NUR ---
EOSS: PT IS STABLE. JARRETT CATHETER REMOVED @ 0520, DUE TO VOID. PASSING GAS. FUNDUS FIRM, LOCHIA MODERATE. PT STARTING TO BECOME INDEPENDENT IN HER CARE. PT AMBULATING IN ROOM. PT PUMPING AND SENDING BREAST MILK TO NICU. PT WANTS TO GO TO NICU TODAY.
[2018-03-19 08:45] VITALS: BP 128/63; PULSE 66; RESP 20
[2018-03-19] MEDS: SENNA/DOCUSATE NA (8.6MG/50MG) TAB PO SCH ×2 (09:46→22:03)
[2018-03-19] MEDS: PRENATAL VITAMIN PO SCH (09:46)
[2018-03-19] MEDS: FERROUS SULFATE (EC) 325 MG TAB PO SCH (09:46)
[2018-03-19] MEDS: FOLIC ACID 1 MG TAB PO SCH (09:46)
--- NOTE | 2018-03-19 10:00 | NUR ---
LC NOTES: LC assisted w/ washing pump parts. Mother is not enrolled into WIC program. LC provided mother WIC phone #. Mother will enroll into WIC program and LC will call for pump for home.
--- NOTE | 2018-03-19 11:00 | NUR ---
Offered to go to NICU by wheelchair and refused at this time.
[2018-03-19] MEDS: IBUPROFEN 600 MG TAB PO SCH ×3 (12:01→23:55)
--- NOTE | 2018-03-19 15:00 | NUR ---
Offered to be taken to NICU to visit infant's and refused at this time. States she will continue to pump and send her breast milk and she will go to NICU in the am.
[2018-03-19 15:54] VITALS: BP 117/63; PULSE 62; RESP 20
--- NOTE | 2018-03-19 18:32 | NUR ---
EOSS; Vital signs stable, denies any pain when in bed but states she has a pain level of 3 when ambulating. Using breast pump and sending her milk to NICU. at bedside.
--- NOTE | 2018-03-19 19:36 | QN ---
Documentation Comment No complaint Afebrile VSS Abdomen soft ND POD #1 Stable Ambulate Advance diet. RALF RALPH MD Mar 19, 2018 19:35
[2018-03-19 20:00] VITALS: BP 130/86; PULSE 66
[2018-03-19] MEDS: OXYCODONE/ACETAMINOPHEN (5/325) TAB PO PRN (22:04)
[2018-03-20] MEDS: IBUPROFEN 600 MG TAB PO SCH ×3 (05:18→17:38)
[2018-03-20 05:56] VITALS: BP 124/64; PULSE 70; RESP 20
--- NOTE | 2018-03-20 05:59 | NUR ---
EOSS. NO DISTRESS AMBULATING NOW NEEDS ATTENDED TO, MADE COMFORTABLE
[2018-03-20 07:50] VITALS: BP 110/59; PULSE 68; RESP 18
--- NOTE | 2018-03-20 08:32 | OPR ---
DATE OF OPERATION: 03/17/2018 PREOPERATIVE DIAGNOSIS: 35 weeks and 3 days, twin gestation, in breech presentation and pr eterm labor. POSTOPERATIVE DIAGNOSIS: Delivered female in complete breech presentation, second pre term male , teodoro presentation. ANESTHESIA: Spinal. ANESTHESIOLOGIST: ____. Report to the chart. SURGEON: Juany Barreto MD MAMMAL KEEPER: Apollo Guidry MD ESTIMATED BLOOD LOSS: Approximately 500 mL. PROCEDURE: Under appropriate induction of the spinal anesthesia, the patient was placed in lithotomy position. Ordonez catheter was introduced into the bladder under sterile condition. The patient was repositioned to supine. Abdominal wall was prepped and draped in usual aseptic manner. A Pfannensti el incision was made. Incision was carried down through the subcutaneous tissue to the anterior rect i fascia which was incised the length of the incision. Fascial flap was created by blunt and sharp d issection of tendinous attachment cephalad and 2 recti muscles split in the midline, peritoneal cavit y was entered. Bladder blade was introduced and low portion of the uterus was exposed. A transverse incision was made above the uterovesical reflection transversely and the incision was carried down l elba by layer, reached the amniotic membrane, ruptured, revealed clear amniotic fluid, delivered norm al female from single footling and mouth and nose were cleaned delayed cord clamped and cut an d handed to the respiratory care personnel for further care. The second ____ was ruptured, revealed clear amniotic fluid. Normal male was born from left sacral anterior position. Mouth and nose were cleaned. Cord was delayed clamped and cut, handed to the respiratory care personnel f or further care. Cord blood was obtained from each umbilical cord and the placenta was removed eli mccracken and handed to the pathology. The uterus was exteriorized. Cavity was completely explored. Ther e were multiple sides that ____ in the uterus. After cavity was completely explored, confirmed empti ness, uterine incision was closed using #1 chromic catgut in continuous interlocking manner on the fi rst layer, second layer using 0 chromic catgut in continuous manner, thus imbricating the first layer of closure. No bleeder was noted. Abdominal cavity was irrigated with water and the uterus was rel ocated in abdominal cavity and the lap sponge was removed and sponge count was correct. The incision site of the uterus was rechecked and confirmed the intact and the parietal peritoneum was closed usi ng 0 chromic catgut in continuous manner, muscle closed with 0 chromic catgut in continuous manner. Fascia closed with #1 Vicryl in continuous manner in 2 segments. Subcutaneous tissue irrigated with water and this layer was approximated with a 2-0 plain in continuous manner after adequate hemostasis was secured. Skin closed with a 3-0 Monocryl in subcuticular manner after ____ which was not workin g properly. Steri-Strip applied. Pressure dressing applied. Estimated blood loss approximately 500 mL. Urine output approximately 200 mL in the back. The patient was sent to recovery in stable cond ition. Dictated By: JUANY DURAND/MELBA Conf#: [id number] DID#: [id number]
[2018-03-20] MEDS: FERROUS SULFATE (EC) 325 MG TAB PO SCH (09:11)
[2018-03-20] MEDS: FOLIC ACID 1 MG TAB PO SCH (09:11)
[2018-03-20] MEDS: PRENATAL VITAMIN PO SCH (09:11)
[2018-03-20] MEDS: SENNA/DOCUSATE NA (8.6MG/50MG) TAB PO SCH ×2 (09:11→21:54)
--- NOTE | 2018-03-20 10:04 | QN ---
Documentation Comment No complaint Afebrile VSS Abdomen soft Stable Continue present care RALF RALPH MD Mar 20, 2018 10:04
[2018-03-20] MEDS: OXYCODONE/ACETAMINOPHEN (5/325) TAB PO PRN ×2 (14:56→21:55)
--- NOTE | 2018-03-20 14:59 | NUR ---
SW NOTE: CONSULT Received a consult to assess for possible anorexia? This creative writer discussed the pt with her RN, Yadiel, who stated the pt has been ambulating today. She has also been eating and is more active. Met with the pt and the FoB at bedside. Pt had a bright affect. Stated she still felt somewhat weak but "better" today. She denied any appetite issues. Stated she ate well and had some home-prepared meal which she stated is "better". Of note, the pt is vegetarian. Pt stated she has been taking her vitamins as well iron. Pt stated she has also been pumping. Pt inquired if SW can recommend food that would help increase her breast milk production. This creative writer explained that is outside of this writers training and encouraged the pt to discuss with her RN as well as with her Resident Surgeon, Kassandra, whose # was on the communication board. During this visit, Resident Surgeon, Kassandra, walked into the pt's room and proceeded to answer the pt's questions. No indication of anorexia or eating disorder. FoB plans to visit [facility], Ramiro Rice. Written directions to the FC office were provided.
[2018-03-20 15:45] VITALS: BP 118/71; PULSE 69; RESP 18
--- NOTE | 2018-03-20 17:17 | NUR ---
EOSS: PT V/S STABLE AND WNL, PO PAIN MEDS FOR PAIN MGMT AND NO C/O PAIN AT THIS TIME, REFUSED TO REMOVE DRESSING UNTIL SHOWER, BREAST PUMP USING AND NO VISITING BABY DURING THIS SHIFT
--- NOTE | 2018-03-20 19:16 | NUR ---
LC NOTES: WIC has contacted mother regarding breast pump. Mother stated that she cant pick breast pump until 03/25 at 3pm. LC went over how to use hand pump.
[2018-03-20 20:00] VITALS: BP 107/64; PULSE 77
--- NOTE | 2018-03-21 02:16 | NUR ---
EOSS NO DISTRESS, COPING WELL WITH SELF CARE LOOKING FORWARD TO GOING HOME TODAY
[2018-03-21 05:08] VITALS: BP 101/70; PULSE 75; RESP 20
[2018-03-21] MEDS: IBUPROFEN 600 MG TAB PO SCH ×4 (05:53→18:06)
[2018-03-21 08:00] VITALS: BP 125/78; PULSE 64; RESP 18
[2018-03-21] MEDS ORDERED: DIPHTH/TET/ACEL PERTUSS (ADULT) 0.5 ML VIAL IM* ONE (09:00)
[2018-03-21] MEDS: PRENATAL VITAMIN PO SCH (09:31)
[2018-03-21] MEDS: SENNA/DOCUSATE NA (8.6MG/50MG) TAB PO SCH ×2 (09:31→21:09)
[2018-03-21] MEDS: FOLIC ACID 1 MG TAB PO SCH (09:31)
[2018-03-21] MEDS: FERROUS SULFATE (EC) 325 MG TAB PO SCH (09:31)
[2018-03-21] MEDS: LANOLIN HPA 1 PKT TOP PRN (15:37)
[2018-03-21 16:32] VITALS: BP 133/61; PULSE 64; RESP 18
--- NOTE | 2018-03-21 17:55 | NUR ---
EOSS; Vital signs stable, denies any pain or discomfort at this time. Using breast pump. 's in NICU. fob at bedside.
--- NOTE | 2018-03-21 17:59 | DS ---
Date/Time of Note Date/Time of Note DATE: 03/21/18 TIME: 17:56 Obstetrical Discharge Record Final Diagnosis Final Diagnosis: delivered Other Final Diagnosis Twin growth restriction Section Section: Primary Primary Indication Twin Breech Complications Complications: Low weight 1500-2500gms Complications Multiple Gestation Condition on Discharge Physical Assessment Voiding: Yes Bowel Movement: Yes Breast: Soft, non-tender, Filling Fundus: Firm Abdomen and Incision: Incision intact Calf Tenderness: No Patient Condition: Stable RALF RALPH MD Mar 21, 2018 17:59
[2018-03-21 20:15] VITALS: BP 128/74; PULSE 63; RESP 18
[2018-03-21] MEDS: OXYCODONE/ACETAMINOPHEN (5/325) TAB PO PRN (22:59)
[2018-03-22 04:00] VITALS: BP 99/54; PULSE 63; RESP 18
--- NOTE | 2018-03-22 04:35 | NUR ---
EOSS VS STABLE, PT AMBULATORY, BREASTPUMP AT BEDSIDE, BABY IN NICU. ANTICIPATE DISCHARGE TODAY
[2018-03-22] MEDS: IBUPROFEN 600 MG TAB PO SCH ×4 (05:34→18:00)
[2018-03-22 07:30] VITALS: BP 104/63; PULSE 65; RESP 18
[2018-03-22] MEDS: SENNA/DOCUSATE NA (8.6MG/50MG) TAB PO SCH (10:12)
[2018-03-22] MEDS: FERROUS SULFATE (EC) 325 MG TAB PO SCH (10:12)
[2018-03-22] MEDS: PRENATAL VITAMIN PO SCH (10:12)
[2018-03-22] MEDS: FOLIC ACID 1 MG TAB PO SCH (10:12)
--- NOTE | 2018-03-22 15:45 | NUR ---
DISCHARGE INSTRUCTIONS GIVEN TO THE PATIENT.THE PATIENT VERBALIZED UNDERSTANDING OF INSTRUCTIONS.REITERATED TO THE PATIENT THE IMPORTANCE OF TAKING A SHOWER DAILY AND KEEPING CSECTION CLEAN AND DRY THEREAFTER.GIVEN EDUCATION ABOUT SIGNS OF INFECTION AND WHAT TO DO.PATIENT VERBALIZED UNDERSTANDING.TWIN BABIES ARE STILL STAYING IN NICU.
--- NOTE | 2018-03-22 16:20 | NUR ---
WENT TO NICU TO VISIT BABIES.
--- NOTE | 2018-03-22 18:10 | NUR ---
CAME BACK FROM NICU.
--- NOTE | 2018-03-22 18:48 | NUR ---
DISCHARGED HOME VIA WHEELCHAIR.
== END 2018-03-22 18:50 | disposition home or self-care (01) | DRG 788 ==
LOC: OBT 12:03 → L-D 12:04 → OBT 16:30 → L-D 23:27 → PP1 03-02 14:38 → L-D 03-18 04:14 → PP1 03-18 09:43
PROVIDERS: ADMIT Obstetrics & Gynecology; ATTEND Obstetrics & Gynecology
PROC: 10D00Z1 Extraction of Products of Conception, Low, Open Approach (ICD-10-PCS; principal; 2018-03-18 05:15)
DX: O60.14X2 Preterm labor third trimester with preterm delivery third trimester, fetus 2 (principal); O32.1XX2 Maternal care for breech presentation, fetus 2; O36.5932 Maternal care for other known or suspected poor fetal growth, third trimester, fetus 2; O30.003 Twin pregnancy, unspecified number of placenta and unspecified number of amniotic sacs, third trimester; Z3A.35 35 weeks gestation of pregnancy; Z37.2 Twins, both liveborn
CPT/HCPCS: 71046; 76815; 76816; 76817; 76818; 76820; 80053; 81001; 81003; 82731; 83735; 85025; 85610; 85730; 86592; 86703; 86706; 86803; 86850; 86900; 86901; 87086; 87340; 88307; 93005; 93970; 99464; G0463; J0690; J0702; J1170; J1885; J2250; J2274; J2405; J2590; J2765; J3475; J7120